=== PATIENT | male | born 1960 | race Caucasian/White ===

== ENCOUNTER 2017-08-19 08:48 | Emergency (ER) | payer BC ==
[2017-08-19 09:03] VITALS: BP 127/75
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
== END 2017-08-19 11:00 | disposition home or self-care (01) ==
LOC: UCEAST 08:48
DX: S22.32XA Fracture of one rib, left side, initial encounter for closed fracture (principal); W17.89XA Other fall from one level to another, initial encounter; Y93.89 Activity, other specified; Y92.9 Unspecified place or not applicable
CPT/HCPCS: 71020; 99212; G0463